=== PATIENT | male | born 1990 | race Hispanic/Latino ===

== ENCOUNTER 2017-07-05 22:56 | Inpatient (IN) | payer MEDICAID, OTHER ==
--- NOTE | 2017-07-05 23:01 | ED PDOC ---
Psych Transfer Clearance - Clearance Statement Clearance Statement: Reviewed vital signs, lab results and transfer papers. Patient clinically stable for psychiatric admission.
[2017-07-05] MEDS ORDERED: DiphenhydrAMINE 50 mg/ml Inj IM PRN (23:23)
[2017-07-05] MEDS ORDERED: Magnesium Hydroxide Susp 30 ml UD PO PRN (23:23)
[2017-07-05] MEDS ORDERED: Alum-Mag Hydrox-Simethicone Susp (30 mL) PO PRN (23:23)
--- NOTE | 2017-07-05 23:37 | PCM.BM ---
<Sarah Bah - Last Filed: 07/05/17 23:35> Treatment Plan Problems - Problems identified on initial assessmt Depression Date Initiated: 07/05/17 Time Initiated: 23:35 Assessment reference: NA Status: Active Treatment assets and liabiliti Patient Assests: ADL independent, physically healthy, negotiates basic needs Patient Liabilities: financial problems, poor support system, substance abuse - Milieu Protocol Maintain good personal hygiene: daily Encourage regular showers, daily Remind patient to perform daily oral care, other Assist patient to perform ADL's (prn) Conduct patient checks and document Observation sheet: Q15 minutes Maintain personal safety: every shift Educate patient to report safety concerns to staff, every shift Monitor environment for contraband/sharps Medication safety: Monitor for expected outcome, potential side effects: every shift, Assess barriers to learning: every shift, Assess readiness for medication education: every shift <Katharine Rainey - Last Filed: 07/10/17 15:20> Treatment assets and liabiliti Patient Assests: adapts well, cooperative, insightful, motivated, resourceful, self-reliant, ADL independent, physically healthy, negotiates basic needs, good past tx response (hx of long periods of maintained sobriety) Patient Liabilities: legal issue (significant hx of arrests/incarcerations) Family Contact Family involvement: Famliy/SO not involved Family contact: Family has been contacted by patient, Patient declines to allow family contact at present - Goals for Treatment Patient goals for treatment: Patient to continue stabilization on 3NP through medication management and group/supportive therapy. Patient to be encouraged to attend groups regularly to promote self-awareness, sobriety, and improve insight , coping skills and self-esteem. Patient to be provided with referral for appropriate level of aftercare to reduce risk of future hospitalizations and ensure safety in the community. Patient requesting to be referred to inpatient substance abuse programs. Residential Air Sealing Technician provided psychoeducation regarding nature of tx provided on 3NP and explained that referrals will be initiated but that it is not guaranteed that patient will be provided with a rehab bed immediately upon discharge. Residential Air Sealing Technician explained that in the event that patient is stabilized prior to rehab bed being made available, patient will be discharged with outpatient mental health/substance abuse services and will have to follow-up with rehab referrals independently. Discharge/Continuing Care - Education Needs Education Needs: Patient Medication, Patient Diagnosis/Disease Process, Patient Coping Skills, Patient Placement options, Patient Community resources, Patient Aftercare Safety Plan - Discharge Discharge Criteria: Tolerates medication w/o severe side effects, Normal sleep pattern, Ability to care for self, No longer exhibiting s/s of withdrawal, Reduction of target symptoms Discharge to:: Substance Abuse Rehab (referrals to rehabs faxed on 07/09), Other ( pt. to be referred to OPS/WM if rehab bed is not obtained by time of d/c) - Treatment Team Participation Patient/Family/SO Statement: 07/10/17 15:24 Patient attended tx team and was cooperative and pleasant. Patient AOX4 with depressed affect and good eye contact. Thoughts are clear and connected. Speech : normal rate and tone. Patient well-groomed with fair ADLs. Patient withdrawn and isolative in context of withdrawal sxs but socializes with staff and peers appropriately with minimal prompts. Insight/Focus fair. Judgment/Insight impaired. Patient denies SI/HI and is able to contract for safety on 3NP. Patient motivated for tx and remains agreeable to inpatient rehab referrals. Discussed with Family/SO: No Was Patient/Family/SO present at Treatment Team Meeting: Yes <Esteban Perez - Last Filed: 07/11/17 09:07> - Diagnosis (1) Opiate abuse, continuous Status: Acute Interventions: motivational therapy 07/11/17 09:07
[2017-07-06 08:51] LABS: T4 9.2 ug/dl (5.5-11.0)
[2017-07-06] MEDS: Multivitamin With Minerals Tab PO SCH (09:59)
--- NOTE | 2017-07-06 13:39 | PCM.PSYCH ---
Initial Psychiatric Evaluation - Initial Psychiatric Evaluation Legal Status: Capacity Chief Complaint (in patient's own words): I want to get help with my substance use Patient's Reaction to Hospitalization: pt requesting help History of Present Illness and Precipitating Events: pt with previous diagnosis of alcohol, opiate cannabis and cocaine use disorder , about three inpatient rehab, not currently in psychiatric treatment reported prior abstinence for 5 years from 2004 to 2009 pt has been using opiates since age 17, reported currently hopeless and helpless due to financial difficulties and being homeless relapsed on opiates using 20 bags with plan to overdose, came to ER seeking help passive suicidal ideation no plan denied homicidal ideation denied manic or psychotic symptoms Current Medications: Active Medications Generic Name Dose Route Start Last Admin Trade Name Freq PRN Reason Stop Dose Admin Acetaminophen 650 mg 07/05/17 23:23 Tylenol 325mg Tab PO Q4 PRN pain 4-7 Al Hydrox/Mg Hydrox/Simethicone 30 ml 07/05/17 23:23 Maalox Plus 30 Ml PO Q4 PRN Dyspepsia Baclofen 10 mg 07/06/17 09:43 Lioresal PO TID PRN Muscle spasm Bupropion HCl 75 mg 07/06/17 09:45 07/06/17 12:28 Wellbutrin PO 75 mg DAILY DAVON Administration Clonidine HCl 0.1 mg 07/06/17 01:00 07/06/17 09:59 Catapres PO 07/09/17 01:01 0.1 mg Q8 DAVON Administration Diphenhydramine HCl 50 mg 07/05/17 23:23 Benadryl IM Q6 PRN Extrapyramidal S/S Unable PO Diphenhydramine HCl 50 mg 07/05/17 23:23 Benadryl PO Q6 PRN Extrapyramidal Symptoms Diphenhydramine HCl 50 mg 07/05/17 23:23 Benadryl PO HS PRN Sleep Gabapentin 100 mg 07/06/17 09:47 Neurontin PO TID PRN Anxiety Haloperidol 5 mg 07/05/17 23:23 Haldol PO Q4 PRN Agitation Haloperidol Lactate 5 mg 07/05/17 23:23 Haldol IM Q4 PRN Agitation, Unable to Take PO Ibuprofen 800 mg 07/05/17 23:46 Motrin Tab PO 07/08/17 23:47 Q6 PRN Pain, Mild (1-3) Loperamide HCl 2 mg 07/05/17 23:46 Imodium PO Q4 PRN After Loose Bowel Movement Lorazepam 2 mg 07/05/17 23:23 Ativan IM Q4 PRN Anxiety/Agitation,Unable PO Lorazepam 1 mg 07/06/17 09:46 Ativan PO TID PRN Anxiety Magnesium Hydroxide 30 ml 07/05/17 23:23 Milk Of Magnesia PO HS PRN Constipation Multivitamins/Minerals 1 tab 07/06/17 09:00 07/06/17 09:59 Therapeutic-M Tab PO 1 tab DAILY DAVON Administration Past Psychiatric History - Past Psychiatric History History of Abuse: three inapatient rehabs History of ETOH/Drug Use: alcohol cannabis cocaine and opiate use Pertinent Medical Hx (Current Medical&Sleep Prob, Allergies): Allergies Allergy/AdvReac Type Severity Reaction Status Date / Time No Known Allergies Allergy Verified 07/05/17 22:58 Mental Status Examination - Personal Presentation Personal Presentation: Looks stated age - Affect Affect: Depressed - Motor Activity Motor Activity: Psychomotor Retardation - Reliability in Providing Information Reliability in Providing Information: Fair - Speech Speech: Organized - Mood Mood: Depressed, Anxious - Formal Thought Process Formal Thought Process: Circumstantial - Hallucinations/Delusions Additional comments: denied perceptual disturbances, non elicited - Obsessions/Compulsions Obsessions: No Compulsions: No - Cognitive Functions Orientation: Person, Place, Situation Sensorium: Alert Attention/Concentration: Attentive Judgement: Imparied, as evidence by: Poor judgement, Imparied, as evidence by: Lack of insight into illness - Risk Risk: Withdrawal, Diminished functioning - Strength & Assets Inventory Strength & Assets Inventory: Life experience - Limitations Additional comments: homeless DSM 5 DX - DSM 5 DSM 5 Diagnosis: 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
--- NOTE | 2017-07-06 14:36 | CP.PCM.CON ---
History of Present Illness - History of Present Illness History of Present Illness: 26 yo male with history Heroin Abuse admitted to psyche unit because of suicidal thoughts. Review of Systems - Review of Systems All systems: reviewed and no additional remarkable complaints except (aside from those mentioned above, 14 point system review were negative by me) Past Patient History - Tetanus Immunizations Tetanus Immunization: Unknown - Past Social History Smoking Status: Heavy Smoker > 10 Cigarettes Daily Alcohol: None Drugs: Cocaine, Opiates Home Situation {Lives}: Homeless - CARDIAC Hx Cardiac Disorders: No - PULMONARY Hx Respiratory Disorders: No - NEUROLOGICAL Hx Neurological Disorder: No - HEENT Hx HEENT Problems: No - RENAL Hx Chronic Kidney Disease: No - ENDOCRINE/METABOLIC Hx Endocrine Disorders: No - HEMATOLOGICAL/ONCOLOGICAL Hx Blood Disorders: No - INTEGUMENTARY Hx Dermatological Problems: No - MUSCULOSKELETAL/RHEUMATOLOGICAL Hx Musculoskeletal Disorders: No - GASTROINTESTINAL Hx Gastrointestinal Disorders: No - GENITOURINARY/GYNECOLOGICAL Hx Genitourinary Disorders: No - PSYCHIATRIC Hx Substance Use: Yes (iv heroin/cocaine) - SURGICAL HISTORY Hx Surgeries: No - ANESTHESIA Hx Anesthesia: No Has any member of the family had a problem w/ anesthesia?: No (unknown) Meds Allergies/Adverse Reactions: Allergies Allergy/AdvReac Type Severity Reaction Status Date / Time No Known Allergies Allergy Verified 07/05/17 22:58 - Medications Medications: Current Medications Acetaminophen (Tylenol 325mg Tab) 650 mg PO Q4 PRN PRN Reason: pain 4-7 Al Hydrox/Mg Hydrox/Simethicone (Maalox Plus 30 Ml) 30 ml PO Q4 PRN PRN Reason: Dyspepsia Baclofen (Lioresal) 10 mg PO TID PRN PRN Reason: Muscle spasm Bupropion HCl (Wellbutrin) 75 mg PO DAILY [facility] Last Admin: 07/06/17 12:28 Dose: 75 mg Clonidine HCl (Catapres) 0.1 mg PO Q8 DAVON Stop: 07/09/17 01:01 Last Admin: 07/06/17 09:59 Dose: 0.1 mg Diphenhydramine HCl (Benadryl) 50 mg IM Q6 PRN PRN Reason: Extrapyramidal S/S Unable PO Diphenhydramine HCl (Benadryl) 50 mg PO Q6 PRN PRN Reason: Extrapyramidal Symptoms Diphenhydramine HCl (Benadryl) 50 mg PO HS PRN PRN Reason: Sleep Gabapentin (Neurontin) 100 mg PO TID PRN PRN Reason: Anxiety Haloperidol (Haldol) 5 mg PO Q4 PRN PRN Reason: Agitation Haloperidol Lactate (Haldol) 5 mg IM Q4 PRN PRN Reason: Agitation, Unable to Take PO Ibuprofen (Motrin Tab) 800 mg PO Q6 PRN PRN Reason: Pain, Mild (1-3) Stop: 07/08/17 23:47 Loperamide HCl (Imodium) 2 mg PO Q4 PRN PRN Reason: After Loose Bowel Movement Lorazepam (Ativan) 2 mg IM Q4 PRN PRN Reason: Anxiety/Agitation,Unable PO Lorazepam (Ativan) 1 mg PO TID PRN PRN Reason: Anxiety Magnesium Hydroxide (Milk Of Magnesia) 30 ml PO HS PRN PRN Reason: Constipation Multivitamins/Minerals (Therapeutic-M Tab) 1 tab PO DAILY DAVON Last Admin: 07/06/17 09:59 Dose: 1 tab Physical Exam - Constitutional Appears: No Acute Distress - Head Exam Head Exam: ATRAUMATIC - Eye Exam Eye Exam: absent: Scleral icterus - ENT Exam ENT Exam: Mucous Membranes Moist - Neck Exam Neck exam: Negative for: Meningismus - Respiratory Exam Respiratory Exam: absent: Rhonchi, Wheezes, Respiratory Distress - Cardiovascular Exam Cardiovascular Exam: REGULAR RHYTHM, +S1, +S2 - GI/Abdominal Exam GI & Abdominal Exam: Soft. absent: Tenderness - Rectal Exam Rectal Exam: Deferred - Extremities Exam Extremities exam: Negative for: pedal edema - Back Exam Back exam: absent: tenderness - Neurological Exam Neurological exam: Alert, Oriented x3 - Psychiatric Exam Psychiatric exam: Normal Affect - Skin Skin Exam: Dry, Intact Results - Vital Signs Recent Vital Signs: Last Vital Signs Temp 98.1 F 07/06/17 09:00 Pulse 74 07/06/17 09:59 Resp 18 07/06/17 09:00 BP 135/84 07/06/17 09:59 Pulse Ox 99 07/05/17 22:58 - Labs Labs: Laboratory Results - last 24 hr 07/06/17 07:19 Triglycerides 81 Cholesterol 158 LDL Cholesterol Direct 86 HDL Cholesterol 52 Thyroxine (T4) 9.20 TSH 3rd Generation 0.25 L Assessment & Plan (1) Suicidal thoughts Status: Acute Comment: psyche is managing (2) Heroin abuse Status: Acute Comment: psyche is managing
[2017-07-07 01:54] VITALS: O2SAT 18
[2017-07-07] MEDS: Multivitamin With Minerals Tab PO SCH (09:54)
--- NOTE | 2017-07-07 16:08 | PCM.PYCHPN ---
Psychiatric Progress Note - Psychiatric Progress Note Patient seen today, length of contact: pt evaluated discussed with team chart reviewed Patient Chief Complaint: I am tired because of the withdrawals Problems Identified/Issues Discussed: pt seen in bed, tired anhedonic, depressed mood and affect due to the opiate withdrawals, vital signs stable, pt continued on the clonidine protocol pt reported poor slepp with early insomnia, denied any cuurrent suicidal or homicidal ideations denied perceptual disturbances DSM 5 Symptoms Update: opiate induced mood disorders with depressive features during withdrawal Medication Change: Yes (start trazodone 100mg qhs) Medical Record Reviewed: Yes Mental Status Examination - Cognitive Function Orientation: Person, Place, Situation Attention: WNL Concentration: WNL Association: WN Fund of Knowledge: [facility] Decription of patient's judgement and insights: partial insight poor judgement - Mood Mood: Depressed, Anxious - Affect Affect: Depressed - Speech Speech: Soft - Formal Thought Process Formal Thought Process: Circumstantial Psychotic Thoughts and Behaviors: pt denied perceptual disturbances, non elicited - Suicidal Ideation Suicidal Ideation: No - Homicidal Ideation Homicidal Ideation: No Goal/Treatment Plan - Goal/Treatment Plan Need for Continued Stay: Severe depression anxiety, Discharge may exacerbated symptoms Progress Toward Problem(s) and Goals/Treatment Plan: clonidine protocol/ monitor vitals for symptoms and signs of withdrawal wellbutrin 75mg start trazodone 100mg qhs motivational group and supportive therapy
[2017-07-08] MEDS: Multivitamin With Minerals Tab PO SCH (09:49)
--- NOTE | 2017-07-08 12:51 | PCM.PYCHPN ---
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 opiate use disorder Medication Change: No Medical Record Reviewed: Yes Mental Status Examination - Cognitive Function Orientation: Person, Place, Situation Attention: WNL Concentration: WNL Association: [facility] Fund of Knowledge: [facility] Decription of patient's judgement and insights: partial insight poor judgement - Mood Mood: Depressed, Anxious - Affect Affect: Depressed - Speech Speech: Soft - Formal Thought Process Formal Thought Process: Circumstantial Psychotic Thoughts and Behaviors: pt denied perceptual disturbances, non elicited - Suicidal Ideation Suicidal Ideation: No - Homicidal Ideation Homicidal Ideation: No Goal/Treatment Plan - Goal/Treatment Plan Need for Continued Stay: Severe depression anxiety, Discharge may exacerbated symptoms Progress Toward Problem(s) and Goals/Treatment Plan: clonidine protocol/ monitor vitals for symptoms and signs of withdrawal wellbutrin 75mg trazodone 100mg qhs motivational group and supportive therapy
[2017-07-08] MEDS ORDERED: Tuberculin 5 Units/0.1 ml Inj ID ONE (15:29)
[2017-07-08] MEDS: guaiFENesin DM 200 mg-20 mg/10 ml UD PO PRN (23:51)
[2017-07-09] MEDS: Multivitamin With Minerals Tab PO SCH (09:13)
[2017-07-09] MEDS: guaiFENesin DM 200 mg-20 mg/10 ml UD PO PRN ×3 (09:14→21:41)
--- NOTE | 2017-07-09 13:32 | PCM.PYCHPN ---
Psychiatric Progress Note - Psychiatric Progress Note Patient seen today, length of contact: pt evaluated discussed with team chart reviewed Patient Chief Complaint: I have trouble sleeping Problems Identified/Issues Discussed: pt evaluated with treatment team , continues to have early insomnia, reported continues to have diarrhea, pt showing insight into illness requesting referral to inpatient rehab, discussed with pt possible start on maintenance treatment as methadone or suboxone on discharge, also starting remeron for depression and insomnia, pt agreed denied any cuurrent suicidal or homicidal ideations denied perceptual disturbances DSM 5 Symptoms Update: 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 on discharge opiate use disorder depression Medication Change: Yes (start remeron, discontinue trazodone) Medical Record Reviewed: Yes Mental Status Examination - Cognitive Function Orientation: Person, Place, Situation Attention: WNL Concentration: WNL Association: WNL Fund of Knowledge: WN Decription of patient's judgement and insights: partial insight poor judgement - Mood Mood: Depressed, Anxious - Affect Affect: Depressed - Speech Speech: Soft - Formal Thought Process Formal Thought Process: Circumstantial Psychotic Thoughts and Behaviors: pt denied perceptual disturbances, non elicited - Suicidal Ideation Suicidal Ideation: No - Homicidal Ideation Homicidal Ideation: No Goal/Treatment Plan - Goal/Treatment Plan Need for Continued Stay: Severe depression anxiety, Discharge may exacerbated symptoms Progress Toward Problem(s) and Goals/Treatment Plan: wellbutrin 75mg, neurontin 100mg tid vistaril prn, remeron 15mg qhs discontinue trazodone motivational group and supportive therapy Estimated Date of D/C: 07/15/17
[2017-07-09 19:01] LABS: HEMOGLOBIN 15.4 g/dL (12.0-18.0); MEAN CELL VOLUME 88.4 fl (80.0-94.0); MEAN CORPUSCULAR HEMOGLOBIN 29.7 pg (27.0-31.0); MEAN CORPUSCULAR HGB CONC 33.6 g/dL (33.0-37.0); RBC 5.2 Mil/uL (4.40-5.90); RED CELL DISTRIBUTION WIDTH 13.6 % (11.5-14.5)
[2017-07-09 19:08] LABS: BLOOD UREA NITROGEN 18 mg/dl (9-20); CALCIUM 9.4 mg/dL (8.4-10.2); GFR AFRICAN-AMERICAN > 60; GFR NON-AFRICAN AMERICAN > 60
[2017-07-10] MEDS: guaiFENesin DM 200 mg-20 mg/10 ml UD PO PRN (09:13)
[2017-07-10] MEDS: Multivitamin With Minerals Tab PO SCH (09:13)
--- NOTE | 2017-07-10 13:48 | PCM.PYCHPN ---
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 opiate use disorder Medication Change: No Medical Record Reviewed: Yes Mental Status Examination - Cognitive Function Orientation: Person, Place, Situation Attention: WNL Concentration: WNL Association: [facility] Fund of Knowledge: [facility] Decription of patient's judgement and insights: partial insight poor judgement - Mood Mood: Neutral - Affect Affect: Constricted, Depressed - Speech Speech: Soft - Formal Thought Process Formal Thought Process: Circumstantial Psychotic Thoughts and Behaviors: pt denied perceptual disturbances, non elicited - Suicidal Ideation Suicidal Ideation: No - Homicidal Ideation Homicidal Ideation: No Goal/Treatment Plan - Goal/Treatment Plan Need for Continued Stay: Severe depression anxiety, Discharge may exacerbated symptoms Progress Toward Problem(s) and Goals/Treatment Plan: wellbutrin 75mg, neurontin 100mg tid vistaril prn, remeron 15mg qhs motivational group and supportive therapy Estimated Date of D/C: 07/15/17
[2017-07-11] MEDS: Multivitamin With Minerals Tab PO SCH (08:23)
[2017-07-11 08:31] VITALS: BP 140/79; PULSE 83; RESP 18; TEMP 98.6
--- NOTE | 2017-07-11 09:14 | PCM.PYCHDC ---
Mental Status Examination - Mental Status Examination Orientation: Person, Place, Situation, Time Memory: Intact Mood: Neutral Affect: Broad Speech: Appropriate Attention: WNL Concentration: WNL Association: WNL Fund of Knowledge: WNL Formal Thought Process: No Impairment Description of patient's judgement and insight: partial insight fair judgement Psychotic Thoughts and Behaviors: pt denied perceptual disturbances, non elicited Suicidal Ideation: No Current Homicidal Ideation?: No Discharge Summary - Discharge Note Reason for Hospitalization: pt requesting help pt with previous diagnosis of alcohol, opiate cannabis and cocaine use disorder , about three inpatient rehab, not currently in psychiatric treatment reported prior abstinence for 5 years from 2004 to 2009 pt has been using opiates since age 17, reported currently hopeless and helpless due to financial difficulties and being homeless relapsed on opiates using 20 bags with plan to overdose, came to ER seeking help passive suicidal ideation no plan denied homicidal ideation denied manic or psychotic symptoms Consultations:: List each consultation separately and include: 1. Reason for request. 2. Findings. 3. Follow-up Summary of Hospital Course include:: 1. Description of specific treatment plan utilized for patients during their course of treatmen. 2. Summarize the time- course for resolution of acute symptoms and/or regressed behaviors. 3. Describe issues identified and worked on during hospitalization. 4. Describe medication utilized. 5. Describe medical problems identified and treated. 6. Reassessment of suicide risk Summary of Hospital Course: pt was started on clonidine protocol, monitored for symptoms and signs of opiate withdrawal neurontin given for anxiety and remeron 15mg qhs for depression motivational group and supportive therapy provided pt was referred and accepted for inpatient rehab at [facility] at 07/10/17 on discharge mental status was stable, pt denied suicidal or homicidal ideations denie perceptual disturbances, was not danger to self or others - Diagnosis (1) Opiate abuse, continuous Current Visit: Yes Status: Acute - Final Diagnosis (DSM 5) Condition upon Discharge: STABLE DSM 5: 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
== END 2017-07-11 11:42 | disposition home or self-care (01) | DRG 895 ==
LOC: H.ER 22:56 → H.ERHOLD 23:00 → H.PSYCH 23:19
PROVIDERS: ADMIT Psychiatry & Neurology Psychiatry; ATTEND Psychiatry & Neurology Psychiatry
PROC: HZ57ZZZ Individual Psychotherapy for Substance Abuse Treatment, Motivational Enhancement (ICD-10-PCS; principal; 2017-07-05)
PROC: HZ59ZZZ Individual Psychotherapy for Substance Abuse Treatment, Supportive (ICD-10-PCS; 2017-07-05)
PROC: GZHZZZZ Group Psychotherapy (ICD-10-PCS; 2017-07-05)
DX: F11.94 Opioid use, unspecified with opioid-induced mood disorder (principal); R45.851 Suicidal ideations; F32.9 Major depressive disorder, single episode, unspecified; Z59.0 Homelessness; F17.210 Nicotine dependence, cigarettes, uncomplicated; F41.9 Anxiety disorder, unspecified